=== PATIENT | female | born 1955 | race African-American/Black ===

== ENCOUNTER 2018-08-16 16:56 | Emergency (ER) | payer MEDICARE ==
[2018-08-16 18:49] LABS: #Basophils 0.1 thou/uL (0.0-0.2); #Eosinphils 0.3 thou/uL (0.0-0.7); #Lymphocytes 1.8 thou/uL (1.20-3.40); #Monocytes 0.7 thou/uL (0.11-0.59); #Neutrophils 4.5 thou/uL (1.40-6.50); %Basophils 1.2 % (0.0-1.0); %Eosinophils 3.9 % (0.0-10.0); %Lymphocytes 24.2 % (21.0-51.0); %Monocytes 9.6 % (0.0-10.0); %Neutrophils 61.2 % (42.0-75.0); Hemoglobin 12.5 g/dL (12.0-16.0); Mean Corpuscular HGB CONC 32.2 g/dL (32.0-36.0); Mean Corpuscular Hemoglobin 28.8 pg (27.0-31.0); Mean Corpuscular Volume 89.4 fL (78.0-98.0); Mean Platelet Volume 9.8 fL (7.4-10.4); Platelet Count 206 thou/uL (130-400); RBC Distribution Width 12.9 % (11.5-14.5); Red Blood Cell (RBC) Count 4.36 mill/uL (4.20-5.40); White Blood Cell (WBC) Count 7.4 thou/uL (4.8-10.8)
--- NOTE | 2018-08-16 18:58 | RAD ---
TWO VIEWS OF THE CHEST: 08/16/18 COMPARISON: 07/04/06. HISTORY: Cough for three days. FINDINGS: Two views of the chest show normal sized cardiomediastinal silhouette. There is no evidence of consol idation, mass, or pleural effusion. The bones are unremarkable. IMPRESSION: No evidence of acute cardiopulmonary disease. POS: [facility]
[2018-08-16 19:11] LABS: ALT (SGPT) 41 U/L (8-55); AST (SGOT) 45 U/L (5-34); Albumin 3.9 g/dL (3.4-4.8); Alkaline Phosphatase 103 U/L (40-150); Anion Gap 15 mmol/L (10-20); BUN (Urea Nitrogen) 9 mg/dL (9.8-20.1); Bilirubin, Total 0.3 mg/dL (0.2-1.2); Calc. Creatinine Clearance 0 mL/min (70-130); Calcium 9.5 mg/dL (7.8-10.44); Carbon Dioxide 27 mmol/L (23-31); Chloride 101 mmol/L (98-107); Estimated GFR-MDRD 88; Globulin 3.8 g/dL (2.4-3.5); Glucose 110 mg/dL (80-115); Protein, Total 7.7 g/dL (6.0-8.3); Sodium 140 mmol/L (136-145)
[2018-08-16 19:12] LABS: Potassium 2.9 mmol/L (3.5-5.1)
--- NOTE | 2018-08-16 20:26 | PDOC.FPRHP ---
- History PMHx: PSHx: FHx: Social: - Vital signs BP: 131/87 HR: 79 RR: 12 Tmax: 97 Pox: 97% on RA Wt: 90kg FMR H&P: Results - Labs Result Diagrams: 08/16/18 18:25 08/16/18 18:25 Lab results: WBC 7.4 thou/uL (4.8-10.8) 08/16/18 18:25 Hgb 12.5 g/dL (12.0-16.0) 08/16/18 18:25 Hct 39.0 % (36.0-47.0) 08/16/18 18:25 MCV 89.4 fL (78.0-98.0) 08/16/18 18:25 Plt Count 206 thou/uL (130-400) 08/16/18 18:25 Neutrophils % 61.2 % (42.0-75.0) 08/16/18 18:25 Sodium 140 mmol/L (136-145) 08/16/18 18:25 Potassium 2.9 mmol/L (3.5-5.1) L* 08/16/18 18:25 Chloride 101 mmol/L (98-107) 08/16/18 18:25 Carbon Dioxide 27 mmol/L (23-31) 08/16/18 18:25 BUN 9 mg/dL (9.8-20.1) L 08/16/18 18:25 Creatinine 0.79 mg/dL (0.6-1.1) 08/16/18 18:25 Glucose 110 mg/dL (80-115) 08/16/18 18:25 Calcium 9.5 mg/dL (7.8-10.44) 08/16/18 18:25 Total Bilirubin 0.3 mg/dL (0.2-1.2) 08/16/18 18:25 AST 45 U/L (5-34) H 08/16/18 18:25 ALT 41 U/L (8-55) 08/16/18 18:25 Alkaline Phosphatase 103 U/L (40-150) 08/16/18 18:25 Serum Total Protein 7.7 g/dL (6.0-8.3) 08/16/18 18:25 Albumin 3.9 g/dL (3.4-4.8) 08/16/18 18:25 FMR H&P: Upper Level - Plan Date/Time: 08/16/182024 I, [], have evaluated this patient and agree with findings/plan as outlined by graphic design intern resident. Pertinent changes/additions are listed here.
[2018-08-16] MEDS ORDERED: Potassium Chloride 20 MEQ TAB ONE (20:34)
[2018-08-16] MEDS ORDERED: Magnesium 2 GM/50 ML BAG (IN WATER) ONE (20:35)
[2018-08-16] MEDS ORDERED: Potassium Chloride 40 MEQ in Sodium Chloride 0.9% 250 ML 250 ML IVPB SCH (21:00)
[2018-08-17 00:31] LABS: Anion Gap 13 mmol/L (10-20); BUN (Urea Nitrogen) 10 mg/dL (9.8-20.1); Calc. Creatinine Clearance 0 mL/min (70-130); Calcium 9.4 mg/dL (7.8-10.44); Carbon Dioxide 29 mmol/L (23-31); Chloride 102 mmol/L (98-107); Estimated GFR-MDRD 82; Glucose 151 mg/dL (80-115); Potassium 3.4 mmol/L (3.5-5.1); Sodium 141 mmol/L (136-145)
[2018-08-17] MEDS ORDERED: Benzonatate 100 MG CAP ONE (00:57)
--- NOTE | 2018-08-17 11:20 | SS ---
DATE OF ADMISSION: 08/16/2018 DATE OF DISCHARGE: 08/17/2018 CHIEF COMPLAINT: Cough. HISTORY OF PRESENT ILLNESS: A 63-year-old female presenting to the emergency department for 4-day history of cough. The patient's cough worsened over the last 24 hours prompting a visit to the ED. Cough is nonproductive. She has no sick contacts at home. The patient does have history of pneumonia and was worried this may be developing. The patient has lost her voice. She denies any fever or chills at home. Her p.o. intake has been normal. She denies any nausea, vomiting, diarrhea, or new skin rashes. However, on evaluation in the ED, the patient was found to be hypokalemic with a potassium of 2.9 as well as a corrected QT of 511 milliseconds. This warranted admission for further observation. PAST MEDICAL HISTORY: 1. Hypertension. 2. Diabetes, type 2. PAST SURGICAL HISTORY: Cholecystectomy. FAMILY HISTORY: Noncontributory. SOCIAL HISTORY: Negative x3. ADMISSION MEDICATIONS: 1. Amlodipine 10 mg p.o. daily. 2. Citalopram 20 mg p.o. daily. 3. Hydrochlorothiazide 50 mg p.o. daily. 4. Lisinopril 20 mg p.o. daily. 5. Metformin 500 mg b.i.d. 6. Simvastatin 20 mg daily. REVIEW OF SYSTEMS: GENERAL: Denies fevers or chills. Denies weakness. EYES: Denies pain. Denies blurred vision. ENT: Endorses loss of voice but denies dysphagia. Endorses rhinorrhea. Denies sore throat. CARDIOVASCULAR: Denies chest pain. Denies dyspnea on exertion. Denies palpitations. RESPIRATORY: Endorses cough but denies shortness of breath. GI: Denies nausea. Denies vomiting. Denies diarrhea. : Denies dysuria. Denies frequency. MUSCULOSKELETAL: Denies back pain. Denies myalgias. SKIN: Denies lesions. Denies rashes. NEUROLOGIC: Denies weakness. Denies numbness. PSYCHIATRIC: Denies anxiety. Denies depression. PHYSICAL EXAMINATION: VITAL SIGNS: Blood pressure 143/85, pulse of 93, respirations of 19, temperature of 99.4, and the patient is satting 94% on room air. HEENT: Normocephalic and atraumatic. Moist mucous membranes. NECK: Supple with no lymphadenopathy. RESPIRATIONS: Clear to auscultation bilaterally. No wheezing. No rhonchi. CARDIOVASCULAR: Regular rate and rhythm. No murmurs. ABDOMEN: Soft. No distention. No masses felt on palpation. NEURO: Cranial nerves 2 through 12 intact. No weakness or loss of sensation noted. SKIN: No lesions. PSYCHIATRIC: Appropriate affect. HOSPITAL COURSE: The patient admitted for hypokalemia and worrisome EKG with prolonged QTc of 511 milliseconds. The patient's initial presenting complaint was cough but a chest x-ray showed no evidence of acute cardiopulmonary disease. CBC showed no leukocytosis. The patient remained afebrile while in the ED. Her complete metabolic panel was normal except for potassium of 2.9. The patient was repleted with 40 mEq p.o. as well as 40 IV. Recheck BMP showed a potassium of 3.4. Repeat EKG was done at that time, which showed a corrected QT of less than 500 milliseconds. At no point, the patient experienced palpitations, lightheadedness, or weakness. This is her first time to this hospital and normally sees an outside physician. Return precautions were given extensively. The patient is aware and is thankful for her care here. DISCHARGE DIAGNOSES: 1. Hypokalemia. 2. Hypertension. 3. Diabetes, type 2. DISCHARGE MEDICATIONS: Please see admission medication list as well as Tessalon Perles 100 mg p.o. q.8 hours p.r.n. for cough. DISPOSITION: Stable. DISCHARGE INSTRUCTIONS: 1. Location: Home. 2. Diet: Heart-healthy. 3. Activity: As tolerated. 4. Followup: With PCP in 7 to 10 days. Job ID: [id number]
--- NOTE | 2018-08-19 18:30 | EKG ---
Test Reason : Blood Pressure : / mmHG Vent. Rate : 082 BPM Atrial Rate : 082 BPM P-R Int : 162 ms QRS Dur : 096 ms QT Int : 438 ms P-R-T Axes : 038 012 033 degrees QTc Int : 511 ms Sinus rhythm with occasional Premature ventricular complexes Left ventricular hypertrophy with repolarization abnormality Prolonged QT Abnormal ECG Confirmed by FREDDY DOMINGO DO ([id number]), newspaper editor managing JACQUELYN GALICIA ([id number]) on 08/19/2018 6:29:25 PM Referred By: Confirmed By:FREDDY DOMINGO DO
--- NOTE | 2018-08-19 18:30 | EKG ---
Test Reason : Blood Pressure : / mmHG Vent. Rate : 089 BPM Atrial Rate : 089 BPM P-R Int : 164 ms QRS Dur : 090 ms QT Int : 402 ms P-R-T Axes : 038 003 010 degrees QTc Int : 489 ms Normal sinus rhythm Moderate voltage criteria for LVH, may be normal variant ST abnormality, possible digitalis effect Abnormal ECG Confirmed by FREDDY DOMINGO DO ([id number]), restaurant expeditor JACQUELYN GALICIA ([id number]) on 08/19/2018 6:29:30 PM Referred By: Confirmed By:FREDDY DOMINGO DO
== END 2018-08-17 02:36 | disposition home or self-care (01) ==
LOC: ERS 16:56
DX: I45.81 Long QT syndrome (principal); E87.6 Hypokalemia; I10 Essential (primary) hypertension; E11.9 Type 2 diabetes mellitus without complications; Z79.84 Long term (current) use of oral hypoglycemic drugs; Z79.899 Other long term (current) drug therapy
CPT/HCPCS: 36415; 71046; 80053; 83735; 85025; 93005; 96365; 96366; 96367; J3480; J7050